=== PATIENT | female | born 1960 | race Caucasian/White ===

== ENCOUNTER 2018-06-11 17:42 | Emergency (ER) | payer OTHER ==
[2018-06-11 18:03] VITALS: BMI 30.2
[2018-06-11] MEDS ORDERED: Sodium Chloride 0.9% 500 ML IV ONE (18:14)
--- NOTE | 2018-06-11 18:19 | C.PDOC ---
History Of Present Illness 58 y/o female presents to the ER complaining of left-sided periumbilical and LLQ abdominal pain which has been present since yesterday. Patient states that the pain is non-radiating. Patient reports that she has associated constipation. Denies having fever, chills, nausea, vomiting, diarrhea, dysuria, hematuria, and history of similar pain. Time Seen by Provider: 06/11/18 18:05 Chief Complaint (Nursing): Abdominal Pain History Per: Patient History/Exam Limitations: no limitations Onset/Duration Of Symptoms: Days Current Symptoms Are (Timing): Still Present Severity: Moderate Past Medical History Reviewed: Historical Data, Nursing Documentation, Vital Signs Vital Signs: Last Vital Signs Temp 99.1 F 06/11/18 18:00 Pulse 117 H 06/11/18 18:00 Resp 20 06/11/18 18:00 BP 158/97 H 06/11/18 18:00 Pulse Ox 95 06/11/18 18:00 - Medical History PMH: Anemia, Hypercholesterolemia, Osteoporosis Other Surgeries: Hx of surgeries Family History: States: No Known Family Hx - Social History Hx Tobacco Use: Yes Hx Alcohol Use: No Hx Substance Use: No - Immunization History Hx Tetanus Toxoid Vaccination: No Hx Influenza Vaccination: No Hx Pneumococcal Vaccination: No Review Of Systems Except As Marked, All Systems Reviewed And Found Negative. Constitutional: Negative for: Fever, Chills Gastrointestinal: Positive for: Abdominal Pain, Constipation. Negative for: Nausea, Vomiting, Diarrhea Genitourinary: Negative for: Dysuria, Hematuria Physical Exam - Physical Exam Appears: Other (comfortable) Skin: Normal Color, Warm, Dry Head: Atraumatic, Normacephalic Eye(s): bilateral: Normal Inspection Nose: Normal Oral Mucosa: Moist Neck: Supple Chest: Symmetrical Cardiovascular: Rhythm Regular (with tachycardia) Respiratory: Normal Breath Sounds, No Rales, No Rhonchi, No Wheezing Gastrointestinal/Abdominal: Soft, Tenderness (mild tenderness in left perium bilical and LLQ regions), No Guarding, No Rebound, Other ((-) McBurney's, (-) De La Vega's) Extremity: Normal ROM Neurological/Psych: Oriented x3, Normal Speech ED Course And Treatment - Laboratory Results Result Diagrams: 06/11/18 19:19 06/11/18 19:19 O2 Sat by Pulse Oximetry: 95 (RA) Pulse Ox Interpretation: Normal - Other Rad A-Jox-Plgxrnm X-Ray: Viewed By Me, Read By Radiologist Interpretation: Date of service: 06/11/2018. PROCEDURE: Radiographs of the chest and abdomen (obstructive series). HISTORY: Abd Pain, constipation. COMPARISON: No prior. TECHNIQUE: AP radiograph of the chest, with upright and supine radiographs of the abdomen. FINDINGS: CHEST: There is hyperinflation, as well as architectural distortion consistent with underlying emphysema. Interstitial prominence may reflect infection or edema. Chronic interstitial markings are not excluded. Heart size appears within normal limits. Ectatic aorta. Atherosclerotic calcifications. ABDOMEN AND PELVIS: Nonspecific prominent air-filled loops of bowel in the mid abdomen. Nonspecific bowel gas pattern. Moderate constipation. No acute osseous abnormality is detected. IMPRESSION: There is hyperinflation, as well as architectural distortion consistent with underlying emphysema. Interstitial prominence may reflect infection or edema. Chronic interstitial markings are not excluded. Nonspecific prominent air-filled loops of bowel in the mid abdomen. Nonspecific bowel gas pattern. Correlate clinically. CT may be considered if clinical concern for obstruction/ileus. Moderate constipation. Progress Note: Labs, UA, CT- Abd & Pelv, and X-Ray- Abd & Pelv. ordered. Patient treated with IV Fluids. Disposition Counseled Patient/Family Regarding: Studies Performed, Diagnosis, Need For Foll owup, Rx Given - Disposition Referrals: Alexis De Jesus DO [Staff Provider] - Disposition: HOME/ ROUTINE Disposition Time: 22:15 Condition: STABLE Additional Instructions: FOLLOW UP WITH YOUR DOCTOR IN 1-2 DAYS USE MEDICATIONS DIRECTED DRINK PLENTY OF CLEAR FLUIDS RETURN TO ER IF YOUR SYMPTOMS WORSEN Prescriptions: Ciprofloxacin [Cipro] 1 tab PO BID #14 tab metroNIDAZOLE [Flagyl] 500 mg PO TID #21 tab Naproxen 375 mg PO BID PRN #20 tablet PRN Reason: pain traMADol [Ultram] 50 mg PO BID PRN #12 tab PRN Reason: pain Instructions: Diverticulitis (DC) Forms: [employer] ([place]er) Print Language: FRISIAN - Clinical Impression Clinical Impression: Acute diverticulitis - Scribe Statement The provider has reviewed the documentation as recorded by the Vickey Chambers Provider Attestation: All medical record entries made by the Vickey were at my direction and personally dictated by me. I have reviewed the chart and agree that the record accurately reflects my personal performance of the history, physical exam, medical decision making, and the department course for this patient. I have also personally directed, reviewed, and agree with the discharge instructions and disposition.
--- NOTE | 2018-06-11 19:00 | RAD ---
Date of service: 06/11/2018 PROCEDURE: Radiographs of the chest and abdomen (obstructive series) HISTORY: Abd Pain, constipation COMPARISON: No prior. TECHNIQUE: AP radiograph of the chest, with upright and supine radiographs of the abdomen. FINDINGS: CHEST: There is hyperinflation, as well as architectural distortion consistent with underlying emphysema. Interstitial prominence may reflect infection or edema. Chronic interstitial markings are not excluded. Heart size appears within normal limits. Ectatic aorta. Atherosclerotic calcifications. ABDOMEN AND PELVIS: Nonspecific prominent air-filled loops of bowel in the mid abdomen. Nonspecific bowel gas pattern. Moderate constipation. No acute osseous abnormality is detected. IMPRESSION: There is hyperinflation, as well as architectural distortion consistent with underlying emphysema. Interstitial prominence may reflect infection or edema. Chronic interstitial markings are not excluded. Nonspecific prominent air-filled loops of bowel in the mid abdomen. Nonspecific bowel gas pattern. Correlate clinically. CT may be considered if clinical concern for obstruction/ileus. Moderate constipation.
[2018-06-11 19:22] LABS: BASO # 0.2 K/uL (0.0-0.2); EOS # 0.1 K/uL (0.0-0.7); EOS % 0.5 % (0.0-4.0); HEMOGLOBIN 14.6 g/dL (11.0-16.0); LYMPH # 2.6 K/uL (1.0-4.3); MEAN CELL VOLUME 89.5 fL (81.0-99.0); MEAN CORPUSCULAR HEMOGLOBIN 29.7 pg (27.0-31.0); MEAN CORPUSCULAR HGB CONC 33.2 g/dL (33.0-37.0); MEAN PLATELET VOLUME 9.9 fL (7.2-11.7); MONO # 0.9 K/uL (0.0-0.8); MONO % 6.1 % (0.0-10.0); NEUT # 11.5 K/uL (1.8-7.0); NEUT % 75.4 % (50.0-75.0); RBC 4.91 Mil/uL (3.80-5.20); RED CELL DISTRIBUTION WIDTH 13.5 % (11.5-14.5); WHITE BLOOD COUNT 15.2 K/uL (4.8-10.8)
[2018-06-11 19:25] LABS: SQUAMOUS EPITHIAL 1 /hpf (0-5); URINE BILIRUBIN NEGATIVE (NEGATIVE); URINE CLARITY Clear (Clear); URINE COLOR Straw (YELLOW); URINE GLUCOSE (UA) NORMAL (Normal); URINE LEUKOCYTE ESTERASE NEG Leu/uL (Negative); URINE PROTEIN NEGATIVE (NEGATIVE); URINE UROBILINOGEN NORMAL mg/dL (0.2-1.0)
[2018-06-11 19:29] LABS: URINE BLOOD TRACE (NEGATIVE)
[2018-06-11 19:36] LABS: ALB/GLOB RATIO 1.3 (1.0-2.1); ALBUMIN 4.5 g/dL (3.5-5.0); ALT/SGPT 20 U/L (9-52); AST/SGOT 21 U/L (14-36); BLOOD UREA NITROGEN 10 mg/dL (7-17); GFR NON-AFRICAN AMERICAN > 60; LIPASE 65 U/L (23-300)
[2018-06-11] MEDS ORDERED: Iodixanol 320 MG/ML 100 ML BOTTLE IV ONE ×2 (20:57→21:05)
[2018-06-11 22:38] VITALS: BP 156/85; PULSE 94; RESP 16; TEMP 98.4; O2SAT 98
--- NOTE | 2018-06-12 18:01 | CT ---
Date of service: 06/11/2018 PROCEDURE: CT Abdomen and Pelvis with contrast HISTORY: LLQ PAIN, R/O DIVERTICULITIS COMPARISON: None. TECHNIQUE: Contrast dose: 100 mL Visipaque 320 Radiation dose: Total exam DLP = 856.65 mGy-cm. This CT exam was performed using one or more of the following dose reduction techniques: Automated exposure control, adjustment of the mA and/or kV according to patient size, and/or use of iterative reconstruction technique. FINDINGS: LOWER THORAX: Unremarkable. LIVER: Minimal hepatomegaly. The liver measures 18.4 cm in greatest dimension. Smooth contour. No biliary dilatation. Multiple small low-attenuation masses common nonspecific. Largest 1.7 cm in lateral segment left hepatic lobe.. GALLBLADDER AND BILE DUCTS: Unremarkable. PANCREAS: Unremarkable. No gross lesion or ductal dilatation. SPLEEN: Unremarkable. ADRENALS: Unremarkable. No mass. KIDNEYS AND URETERS: No calculus or hydronephrosis. Nonspecific rounded low-attenuation masses in both kidneys, largest 1.2 cm in the upper pole left kidney. This measures 33 Hounsfield units and therefore evaluation with ultrasound examination is suggested. VASCULATURE: Unremarkable. No aortic aneurysm. Minimal atherosclerotic calcification of the abdominal aorta is noted. BOWEL: There is acute diverticulitis at the junction of the descending and sigmoid colon. Stranding of the pericolonic fat is noted. There is no mural thickening. There is diverticulosis. There is no abscess. There is no free intraperitoneal air. No other abnormal bowel loops are appreciated elsewhere. There is no bowel obstruction. APPENDIX: Normal appendix. PERITONEUM: Unremarkable. No free fluid. No free air. LYMPH NODES: Unremarkable. No enlarged lymph nodes. BLADDER: Unremarkable. REPRODUCTIVE: Uterus significant for hyperdense 3.8 cm rounded mass consistent with leiomyoma. BONES: No acute fracture. OTHER FINDINGS: None. IMPRESSION: Acute diverticulitis at the junction of the descending and sigmoid colon. No evidence of abscess or free air. Mild hepatomegaly. Nonspecific low-density hepatic masses, largest 1.7 cm. Small low-density renal lesions, largest 1.2 cm in the left kidney. Correlate with renal ultrasound. Probable 3.8 cm uterine fibroid. The preliminary findings for this examination were reported by [facility] at 9:42 p.m. on 06/11/2018. There is concurrence of this report with the preliminary findings.
== END 2018-06-11 22:40 | disposition home or self-care (01) ==
LOC: C.ER 17:42
DX: K57.32 Diverticulitis of large intestine without perforation or abscess without bleeding (principal)
CPT/HCPCS: 74022; 74177; 80053; 81001; 83690; 85025; 99285; J7040; Q9967